=== PATIENT | female | born 1945 | race Caucasian/White ===

== ENCOUNTER → 2017-09-11 08:59 | Outpatient (CLI) | payer MEDICARE, OTHER ==
[2014-05-01 13:28] VITALS: BMI 26.4
[~2017-09-11 08:59] MED LIST: BAYER CHEWABLE81 MG PO
== END | disposition home or self-care (01) ==
LOC: D.RAD 08:59
DX: R13.10 Dysphagia, unspecified (principal)

== ENCOUNTER → 2017-09-15 07:12 | Outpatient (CLI) | payer MEDICARE, OTHER ==
[2014-05-01 13:28] VITALS: BMI 26.4
== END | disposition home or self-care (01) ==
LOC: D.OPS 07:12
DX: R13.10 Dysphagia, unspecified (principal)